=== PATIENT | female | born 1945 | race Caucasian/White ===

== ENCOUNTER 2023-12-24 11:48 | Emergency (ER) | payer OTHER, SELFPAY ==
[2023-12-24 12:16] VITALS: BP 173/81
[2023-12-24 12:38] LABS: % Basophils 0.5 % (0-2); % Eosinophils 0.9 % (0-6); % Immature Granulocytes 0.5 % (0-0.5); % Lymphocytes 29.7 % (20.5-51.1); % Monocytes 10.2 % (1.7-9.3); % Neutrophils 58.2 % (42.2-75.2); Absolute Eosinophils 0.1 10^3/uL (0-0.7); Absolute Lymphocytes 1.6 10^3/uL (1.2-3.4); Absolute Monocytes 0.6 10^3/uL (0.1-0.6); Absolute Neutrophils 3.2 10^3/uL (1.4-6.5); Hematocrit 35.1 % (37.0-47.0); Mean Corp Hgb Conc. 34.2 g/dL (33.0-37.0); Mean Corpuscular Hgb 29.4 pg (27.0-31.0); Mean Platelet Volume 9.5 fL (7.4-10.4); Nucleated Red Blood Cells % 0 %; Platelet Count 242 10^3/uL (130-400); Red Blood Cell Count 4.08 10^6/uL (4.20-5.40); Red Cell Dist. Width 14.8 % (11.5-14.5); White Blood Cell Count 5.5 10^3/uL (4.8-10.8)
[2023-12-24 12:50] LABS: ALT (SGPT) 54 U/L (0-35); AST (SGOT) 94 U/L (14-36); Albumin 4.3 g/dl (3.5-5.0); Alkaline Phosphatase 63 U/L (38-126); Blood Urea Nitrogen 9 mg/dl (7-17); Calcium 9.1 mg/dl (8.4-10.2); Carbon Dioxide 26 mmol/L (22-30); Chloride 97 mmol/L (98-107); Glucose 113 mg/dl (70-99); Potassium 3.6 mmol/L (3.5-5.1); Sodium 131 mmol/L (135-145); Total Bilirubin 1.5 mg/dl (0.2-1.3); Total Protein 7.4 g/dl (6.3-8.2); eGFR > 60.00
--- NOTE | 2023-12-24 14:00 | ED.GENMED ---
History of Present Illness
<Charisse Beebe PA-C - Last Filed: 12/24/23 16:20>
General
Chief Complaint: Skin Problem
Source: patient
Exam Limitations: none
Time Seen by Provider: 12/24/23 13:54
Nursing documentation reviewed up to this point in time: agreed with
Travel History
Have you had any contact with someone who has COVID-19?: No
Do you have any symptoms of coronavirus? Fever > 100 degrees, chills, cough, shortness of breath, sore throat, loss of taste or smell, muscle aches, or headache?: No
History of Present Illness
History of Present Illness:
This is a 78-year-old female with past medical history of A-fib, hypertension, hyperlipidemia presenting to the emergency department today with right knee swelling. She states that around 2 weeks ago, she fell on her right knee while pushing a car
outside. She states that she had a lot of the pain at the time the fall, however her pain subsided in the following days and currently she has no pain. She states that she started to have a lot of swelling and redness on the surface of her knee,
and presented today because she was concerned about it not resolving. She states that it has not necessarily gotten worse but she just thought that some of the swelling was gone down by now. She is able to walk without difficulties. She denies
any fevers or chills, recent procedures in the knee. She does take Plavix daily. She was originally seen by urgent care today who was concerned about cellulitis of the right knee and sent her here to the emergency department. She denies any
allergies to any antibiotics.
Past History
<Charisse Beebe PA-C - Last Filed: 12/24/23 16:20>
Past History
ED Past Medical History: Arrthythmia (Atrial fibrillation), HTN and Other (kidney stones, gallstones)
ED Past Surgical History: Gynecological
Social History
Tobacco: Non-smoker
Personal:
Living: with family
Employment: Employed
Review of Systems
<JORI Park Last Filed: 12/24/23 16:20>
Review of Systems
All Other Systems: ROS reviewed and negative except as documented in HPI and ROS
Phy Exam
<JORI Park Last Filed: 12/24/23 16:20>
Physical Exam
Physical Exam:
General: Patient is well-appearing in no acute distress.
Skin: There are scattered areas of bruising and petechiae on the right lower extremity. There is a small erythematous rash located on the left side of the right patella, which is nonpainful and not warm to the touch.
Cardiac: Regular rate
Pulm: Normal respiratory effort
Musculoskeletal: There is a palpable hematoma overlying the surface of the patella. Patient has full active range of motion and passive range of motion of the right lower extremity. There is no tenderness to palpation of the right knee. There is
swelling of the right knee joint.
Course
<JORI Park Last Filed: 12/24/23 16:20>
Orders/Labs/Results
Orders:
Orders
12/24/23 12:19
Knee, Right 4 or More Views [CR Knee- Right 4 Or More View*] Urgent
Comment:
Reason For Exam: fall
12/24/23 12:26
CBC/With Diff [Complete Blood Count/With Diff] Urgent
Comprehensive Metabolic Panel Urgent
Abnormal Lab Results
12/24/23
12:26
RBC 4.08 L 10^6/uL
(4.20-5.40)
Hct 35.1 L %
(37.0-47.0)
RDW 14.8 H %
(11.5-14.5)
Monocytes % 10.2 H %
(1.7-9.3)
Sodium 131 L mmol/L
(135-145)
Chloride 97 L mmol/L
(98-107)
Creatinine 0.4 L mg/dL
(0.6-1.0)
Glucose 113 H mg/dl
(70-99)
Total Bilirubin 1.5 H mg/dl
(0.2-1.3)
AST 94 H U/L
(14-36)
ALT 54 H U/L
(0-35)
12/24/23 12:26
12/24/23 12:26
Vital Signs
Initial and Last Documented VS:
Initial Vital Signs
Temp Pulse Resp BP Pulse Ox
98.3 F 89 16 173/81 96
12/24/23 12:16 12/24/23 12:16 12/24/23 12:16 12/24/23 12:16 12/24/23 12:16
Last Documented Vital Signs
Temp Pulse Resp BP Pulse Ox
98.3 F 89 16 173/81 96
12/24/23 12:16 12/24/23 12:16 12/24/23 12:16 12/24/23 12:16 12/24/23 12:16
<Nathaniel Lynch, DO - Last Filed: 12/24/23 14:18>
Orders/Labs/Results
Orders:
Orders
12/24/23 12:19
Knee, Right 4 or More Views [CR Knee- Right 4 Or More View*] Urgent
Comment:
Reason For Exam: fall
12/24/23 12:26
CBC/With Diff [Complete Blood Count/With Diff] Urgent
Comprehensive Metabolic Panel Urgent
Abnormal Lab Results
12/24/23
12:26
RBC 4.08 L 10^6/uL
(4.20-5.40)
Hct 35.1 L %
(37.0-47.0)
RDW 14.8 H %
(11.5-14.5)
Monocytes % 10.2 H %
(1.7-9.3)
Sodium 131 L mmol/L
(135-145)
Chloride 97 L mmol/L
(98-107)
Creatinine 0.4 L mg/dL
(0.6-1.0)
Glucose 113 H mg/dl
(70-99)
Total Bilirubin 1.5 H mg/dl
(0.2-1.3)
AST 94 H U/L
(14-36)
ALT 54 H U/L
(0-35)
12/24/23 12:26
12/24/23 12:26
Vital Signs
Initial and Last Documented VS:
Initial Vital Signs
Temp Pulse Resp BP Pulse Ox
98.3 F 89 16 173/81 96
12/24/23 12:16 12/24/23 12:16 12/24/23 12:16 12/24/23 12:16 12/24/23 12:16
Last Documented Vital Signs
Temp Pulse Resp BP Pulse Ox
98.3 F 89 16 173/81 96
12/24/23 12:16 12/24/23 12:16 12/24/23 12:16 12/24/23 12:16 12/24/23 12:16
<Charisse Beebe PA-C - Last Filed: 12/24/23 16:20>
MDM/Problems Addressed
Differential Diagnosis Includes:
Differential includes hemarthrosis, ligamentous tear of the knee, cellulitis of the knee, skeletal strain/sprain, osteoarthritis
MDM/Problems Addressed:
Right knee swelling
Chronic conditions affecting care: HTN, Arrhythmia and Other (Hyperlipidemia)
<JORI Park Last Filed: 12/24/23 16:20>
*Radiology
Radiology exam reviewed: preliminary read by ED provider (Right knee effusion present, no acute fracture)
*Pulse Oximetry
Patient hypoxic: no
*Critical Care Note
Total Time (30-74mins, 75-104mins- exclusive of procedures): Not Applicable
Data Reviewed
Prescriptions/Medications Considered But Not Given:
Considered right knee joint arthrocentesis however patient is having no pain
Considered drainage of right knee hematoma however patient has no pain and is on Plavix
Further Testing Considered But Not Given:
N/A
<Charisse Beebe PA-C - Last Filed: 12/24/23 16:20>
Patient Management
Discussion with other providers: Packaging Supervisor (Ortho)
Escalation/DeEscalation of care consider admission/obs:
This is a 78-year-old female with a past medical history of hypertension who presents to the emergency department today with right knee swelling following a fall 2 weeks ago.. She has no knee pain. She is presenting today because of the
persistence of the swelling. On physical exam she has right knee swelling, with a palpable hematoma over the patella as well as a small erythematous rash on the medial knee. She seen by urgent care who sent her here because of concerns about
cellulitis. Her rash is not warm and not painful, however we will cover early cellulitis with Keflex. I spoke to Dr. Stew perez with orthopedics who recommends outpatient follow-up and does not feel that any intervention is needed at this time.
Considering she has no pain, no procedure is necessary at this time. I suspect her swelling is part of the sequela of her healing knee following the fall. We provide patient with a referral for Ortho and advised her to take Tylenol should she have
any pain. Advised her to stay active and weight-bear as tolerated. She is stable for discharge
ED Attending Note
<Charisse Beebe PA-C - Last Filed: 12/24/23 16:20>
-
Portions of this chart may have been created with voice recognition software.� Occasional wrong word or��sound alike� substitutions may have occurred due to the inherent limitations of voice recognition software.
<Nathaniel Lynch DO - Last Filed: 12/24/23 14:18>
ED Attending Note
ED Attending Note:
I evaluated patient at bedside at 2:15 PM. There is some ecchymosis noted as well as a infrapatellar effusion that is relatively superficial. She is well-appearing with normal white count and afebrile. Very low suspicion for septic joint.
Discharge Plan
Departure
Patient Disposition: Home (Routine Discharge)
Date of Disposition: 12/24/23
Time of Disposition: 14:37
Patient with high blood pressure during this ER visit?: Yes
Condition: Good
Discharge Problem:
Swelling of joint of right knee
Instructions: Preventing falls in adults, Swollen Joints (DC)
Prescriptions:
New
cephalexin 500 mg capsule
500 mg PO Q6H 5 Days Qty: 20 0RF
No Action
lisinopril-hydrochlorothiazide 1 EACH tablet
1 ea PO DAILY
metoprolol succinate 50 MG tablet extended release 24 hr
50 mg PO DAILY
aspirin 81 MG tablet,delayed release (DR/EC)
81 mg PO DAILY
Referrals:
Guillermina Hamilton DO [Active] - Call in 1-3 days for appt
Debbie Welch MD [Family Provider] -
Activity Restrictions/Additional Instructions:
We sent an antibiotic to your pharmacy called Keflex. Please take 1 pill every 6 hours for 5 days.
Please return to emergency department should you experience knee pain, fevers or chills, develop the inability to walk, bear weight, or other concerning signs or symptoms.
We have given you a referral for orthopedist. Please call today for an appointment.
Interventions
Interventions:
*Risk Screen - Suicide Last Done: 12/24/23 14:48
*General Assessment Last Done: 12/24/23 14:48
*Neglect/Abuse Screening Last Done: 12/24/23 14:48
ED- Fall Risk Assessment Last Done: 12/24/23 14:48
*ED COVID-19 Vaccine History Last Done: 12/24/23 14:48
*Nursing Disposition Last Done: 12/24/23 14:48
ED-Skin Assessment Last Done: 12/24/23 14:48
Discharge Date and Time
Discharge Date/Time: 12/24/23 14:49
== END 2023-12-24 14:49 | disposition home or self-care (01) ==
LOC: EMR 11:48
PROVIDERS: Emergency Medicine; EMERGENCY PHYSICIAN Emergency Medicine; FAMILY PHYSICIAN Family Medicine
DX: M25.461 Effusion, right knee (principal); S80.01XA Contusion of right knee, initial encounter; W19.XXXA Unspecified fall, initial encounter; I10 Essential (primary) hypertension; I49.9 Cardiac arrhythmia, unspecified; E78.49 Other hyperlipidemia; Z79.02 Long term (current) use of antithrombotics/antiplatelets
CPT/HCPCS: 99284; 73564; 80053; 85025

== ENCOUNTER → 2024-04-10 09:28 | Outpatient (REF) | payer OTHER, SELFPAY | LOC: RAD 09:28 | PROVIDERS: ATTENDING PHYSICIAN Physician Assistant | DX: R05.3 Chronic cough (principal) | CPT/HCPCS: 71046 ==

== ENCOUNTER 2024-10-17 10:38 | Emergency (ER) | payer OTHER, SELFPAY ==
[2024-10-17 10:40] VITALS: BP 172/106
--- NOTE | 2024-10-17 11:11 | ED.GENMED ---
History of Present Illness
General
Chief Complaint: Skin Problem
Source: patient
Exam Limitations: none
Time Seen by Provider: 10/17/24 11:03
Nursing documentation reviewed up to this point in time: agreed with
History of Present Illness
History of Present Illness:
pt is a 78 y/o F with h/o PAF, htn, hld
not diabetic
here with tender swollen lump on her back x about 1 week
she isn't sure if she always has a lump there and it got bigger and more painful or if it is brand new
no fever/chills
she says she has antibiotic prescription 'for years' in her cabinet and she opened the capsule and tried to put the powder on her skin
she isn't sure what antibiotic it was
no fever/chills, drainage, cp, sob
no h/o MRSA that she knows of
Past History
Past History
ED Past Medical History: Arrthythmia (Atrial fibrillation), HTN and Other (kidney stones, gallstones)
ED Past Surgical History: Gynecological
Social History
Tobacco: Non-smoker
Personal:
Living: with family
Employment: Employed
Review of Systems
Review of Systems
Allergies reviewed?: Yes
All Other Systems: Not applicable
Phy Exam
Physical Exam
Physical Exam:
GENERAL: Alert , in no apparent distress
EYE: pupils equal and reactive
NECK: Supple
ENT: o/p clr, mmm.
CARDIAC: Regular rate and rhythm .
LUNGS: Clear breath sounds bilaterally, no acute respiratory distress, no wheezes/rales/rhonchi
ABDOMEN: Soft, without focal tenderness, no r/g, no cvat, normal bowel sounds
NEUROLOGICAL: Alert and oriented, no focal neuro deficits
SKIN: Warm and dry, skin intact.
tender fluctuant abscess/cyst to midline back approx 2 x 1.5 cm with slight surrounding induration about 2 cm around the cyst; minimal erythema overlying the fluctuant part, no significant cellulitis
PSYCH: Normal and appropriate interaction.
Course
Vital Signs
Pulse: 86
Blood pressure: 170/86
Initial and Last Documented VS:
Initial Vital Signs
Temp Pulse Resp BP Pulse Ox
36.8 C 87 16 172/106 98
10/17/24 10:40 10/17/24 10:40 10/17/24 10:40 10/17/24 10:40 10/17/24 10:40
Last Documented Vital Signs
Temp Pulse Resp BP Pulse Ox
36.8 C 86 16 170/86 98
10/17/24 10:40 10/17/24 11:59 10/17/24 10:40 10/17/24 11:59 10/17/24 10:40
Procedures
Incision/Drainage/Joint Aspiration
Middle Posterior Back:
Anethesia: 1% Lidocaine with Epi
Preparation: cleaned with Betadine
Type of procedure: incise
Nature of site: cyst
Description of abscess: greater than 3cm
Loculations broken up: No
How much fluid was obtained?: large amount
Fluid description: other (cystic)
Treatment: left open for drainage
MDM/Problems Addressed
Differential Diagnosis Includes:
sebaceous cyst, abscess, lipoma
MDM/Problems Addressed:
78 y/o F with h/o htn
here with mid thoracic back swelling localized with fluctuance, no drainage
no significant surrounding erythema
no fever/chills
c/w sebaceous cyst
i&d successful with removal of contents
left open for warm water irrigation in the shower
bp appreacited to be high
astympatomic likely relate dto being here
pt was admittedly nervous
*Critical Care Note
Total Time (30-74mins, 75-104mins- exclusive of procedures): Not Applicable
ED Attending Note
-
Portions of this chart may have been created with voice recognition software.� Occasional wrong word or��sound alike� substitutions may have occurred due to the inherent limitations of voice recognition software.
Discharge Plan
Departure
Patient Disposition: Home (Routine Discharge)
Date of Disposition: 10/17/24
Time of Disposition: 11:43
Patient with high blood pressure during this ER visit?: Yes
Condition: Fair
Discharge Problem:
Infected sebaceous cyst
Instructions: Epidermal Cyst (DC), BLOOD PRESSURE
Prescriptions:
New
cephalexin 500 mg capsule
500 mg PO Q8H Qty: 21 0RF
No Action
lisinopril-hydrochlorothiazide 1 EACH tablet
1 ea PO DAILY
metoprolol succinate 50 MG tablet extended release 24 hr
50 mg PO DAILY
aspirin 81 MG tablet,delayed release (DR/EC)
81 mg PO DAILY
cephalexin 500 mg capsule
500 mg PO Q6H 5 Days Qty: 20 0RF
Referrals:
Malinda Salazar MD [Family Provider] -
Activity Restrictions/Additional Instructions:
WARM COMPRESSES SEVERAL TIMES A DAY (OR GO IN THE SHOWER AND LET THE HOT WATER FLUSH OUT THE AREA) FOR A FEW DAYS UNTIL HEALED
FOLLOW UP WITH [facility] NEXT WEEK
TAKE KEFLEX 3 TIMES A DAY FOR 7 DAYS
RETURN FOR: FEVER, WORSE PAIN ,WORSE SWELLING, WORSE REDNESS OR ANY CONCENRS.
Interventions
Interventions:
*Risk Screen - Suicide Last Done: 10/17/24 10:40
*Neglect/Abuse Screening Last Done: 10/17/24 10:40
ED- Fall Risk Assessment Last Done: 10/17/24 11:58
*Nursing Disposition Last Done: 10/17/24 11:58
Discharge Date and Time
Discharge Date/Time: 10/17/24 11:59
Print Language: [place]
== END 2024-10-17 11:59 | disposition home or self-care (01) ==
LOC: EMR 10:38
PROVIDERS: EMERGENCY PHYSICIAN Emergency Medicine; FAMILY PHYSICIAN Student in an Organized Health Care Education/Training Program
DX: L08.9 Local infection of the skin and subcutaneous tissue, unspecified (principal); L72.3 Sebaceous cyst; R22.2 Localized swelling, mass and lump, trunk; I48.91 Unspecified atrial fibrillation; I10 Essential (primary) hypertension; E78.00 Pure hypercholesterolemia, unspecified; Z87.442 Personal history of urinary calculi
CPT/HCPCS: 99282

== ENCOUNTER → 2024-12-25 09:39 | Outpatient (REF) | payer OTHER, SELFPAY | LOC: HWRCS 09:39 | PROVIDERS: ATTENDING PHYSICIAN Internal Medicine Cardiovascular Disease; FAMILY PHYSICIAN Family Medicine | DX: I34.0 Nonrheumatic mitral (valve) insufficiency (principal); I48.0 Paroxysmal atrial fibrillation | CPT/HCPCS: 93306 ==